=== PATIENT | male | born 1985 | race Caucasian/White ===

== ENCOUNTER 2016-06-17 09:24 | Emergency (ER) | payer SELFPAY ==
[~2016-06-17] VITALS: Ht 170.2 cm; Wt 77.7 kg
[~2016-06-17 09:24] MED LIST: BENTYL20 MG PO; FIORICET,ESG1 TABLET PO; FLEXERIL10 MG PO; FLEXERIL5 MG PO; MOTRIN800 MG PO; NAPROSYN500 MG PO; PREDNISONE10 MG PO; PROMETHAZINE HC25 M1 PO; ULTRAM50 MG PO; ZANTAC150 MG PO; ZOFRAN ODT8 MG PO; ZOFRAN4 MG PO
[2016-06-17 10:34] LABS: HEMATOCRIT 50.6 % (38.0-50.0); MCH 31.8 PG (29.0-34.0); MCHC 34.4 G/DL (30.0-36.0); MCV 92.3 FL (86-99); MEAN PLAT.VOLUME 9.6 uM^3 (9.0-12.4); PLATELET COUNT 238 K/uL (156-360); RBC DIS.WIDTH-CV 13.3 % (11.8-14.6); RED BLOOD COUNT 5.48 M/uL (4.00-5.50); WHITE BLOOD COUNT 10.4 K/uL (4.1-10.2)
[2016-06-17 10:54] LABS: CHLORIDE 107 mEq/L (99-109); POTASSIUM 4.9 mEq/L (3.7-5.4); SODIUM 139 mEq/L (136-147)
[2016-06-17 10:56] LABS: GLUCOSE 97 mg/dL (70-99)
[2016-06-17 10:57] LABS: ANION GAP 11 MEQ/L (2-14)
[2016-06-17 11:00] LABS: GFR ESTIMATE (CALCULATED) > 59 mL/min/
[2016-06-17 11:01] LABS: UREA NITROGEN (BUN) 11 mg/dL (9-23)
[2016-06-17 11:33] LABS: TOTAL BILIRUBIN 0.3 mg/dL (0.0-1.0)
[2016-06-17 11:34] LABS: ALKALINE PHOSPHATASE 92 IU/L (3-129)
[2016-06-17 11:37] LABS: DIRECT BILIRUBIN 0.1 mg/dL (0.0-0.3)
[2016-06-17] MEDS ORDERED: ZOFRAN ODT4 MG PO (11:57)
[2016-06-17 12:16] LABS: ADD MIUA? NO; BILIRUBIN NEGATIVE; BLOOD NEGATIVE; COLOR YELLOW ((YELLOW)); GLUCOSE (STRIP) NEGATIVE; KETONES NEGATIVE; LEUKOCYTES NEGATIVE; NITRITE NEGATIVE; PROTEIN (STRIP) NEGATIVE; SPECIFIC GRAVITY 1.013 (1.000-1.030); UCUL ADDED? NO; UROBILINOGEN 0.2 MG/DL (0.2-1.0)
[2016-06-17 13:03] VITALS: BP 152/89
== END 2016-06-17 13:03 | disposition home or self-care (01) ==
LOC: EME 09:24
DX: R11.2 Nausea with vomiting, unspecified (principal); R94.5 Abnormal results of liver function studies; F17.200 Nicotine dependence, unspecified, uncomplicated
CPT/HCPCS: 80048; 80074; 80076; 81003; 85027; 99281; 99284

== ENCOUNTER 2016-10-19 13:32 | Emergency (ER) | payer SELFPAY ==
[~2016-10-19] VITALS: Ht 170.2 cm; Wt 88.0 kg
[~2016-10-19 13:32] MED LIST changes: +ZOFRAN ODT4 MG PO
[2016-10-19] MEDS ORDERED: MOTRIN800 MG PO (15:06)
[2016-10-19] MEDS ORDERED: FLEXERIL10 MG PO (15:06)
[2016-10-19 15:16] VITALS: BP 131/71
== END 2016-10-19 15:17 | disposition home or self-care (01) ==
LOC: EME 13:32
DX: S46.911A Strain of unspecified muscle, fascia and tendon at shoulder and upper arm level, right arm, initial encounter (principal); X58.XXXA Exposure to other specified factors, initial encounter; M62.838 Other muscle spasm
CPT/HCPCS: 73030; 99281; 99284

== ENCOUNTER 2016-10-29 12:15 | Emergency (ER) | payer SELFPAY ==
[~2016-10-29] VITALS: Ht 170.2 cm; Wt 84.6 kg
[2016-10-29] MEDS ORDERED: TYLENOL WITH C1 EACH PO (12:52)
[2016-10-29 13:15] VITALS: BP 123/83
== END 2016-10-29 13:15 | disposition home or self-care (01) ==
LOC: EME 12:15
DX: S46.911A Strain of unspecified muscle, fascia and tendon at shoulder and upper arm level, right arm, initial encounter (principal); Z88.1 Allergy status to other antibiotic agents
CPT/HCPCS: 99281; 99283